=== PATIENT | female | born 1985 | race Two or more races ===

== ENCOUNTER 2016-11-05 21:33 | Emergency (ER) | payer BC, OTHER ==
[2016-11-05] MEDS ORDERED: MORPHINE SULFATE 4 MG/ML SYRINGE IV STA (22:00)
[2016-11-05] MEDS ORDERED: SODIUM CHLORIDE 0.9% 1,000 ML IV STA (22:00)
[2016-11-05] MEDS ORDERED: ONDANSETRON 4 MG/2 ML VIAL IVP STA (22:00)
[2016-11-05 22:17] LABS: Basophils % (A) 0 %; CHCM 33.1; Eosinophils # (A) 0.2 k/uL (0-0.7); Eosinophils % (A) 2 %; HCT 41.6 % (34.0-46.0); HDW 2.39; HGB 13.5 gm/dL (11.4-16.0); Luc # (Auto) 0.21; Luc % (Auto) 2; Lymphocytes # (A) 3.2 k/uL (1.0-4.8); Lymphocytes % (A) 26 %; MCH 27.6 pg (25.0-35.0); MCHC 32.5 g/dL (31.0-37.0); Mean Platelet Volume 8.8; Monocytes # (A) 0.5 k/uL (0-1.0); Monocytes % (A) 4 %; Neutrophils # (A) 8.5 k/uL (1.3-7.7); Neutrophils % (A) 67 %; RBC 4.89 m/uL (3.80-5.40); RDW 15.7 % (11.5-15.5); WBC 12.6 k/uL (3.8-10.6); WBC (Perox) 12.17
--- NOTE | 2016-11-05 22:19 | ED ---
Abdominal Pain HPI - General Chief Complaint: Abdominal Pain Stated Complaint: Abd Pain Time Seen by Provider: 11/05/16 21:48 Source: patient, RN notes reviewed Mode of arrival: ambulatory Limitations: no limitations - History of Present Illness Initial Comments: this a 31-year-old female presents emergency Department chief complaint abdominal pain, nausea vomiting. Patient states she's had symptoms over the last 2 days. Patient states it's in her mid abdomen and slightly in the epigastric region. Patient states that she had some heartburn took some Zantac with no relief her symptoms. She denies any diarrhea she states her stools been slightly higher than usual. Patient denies any dysuria or hematuria. Patient had a prior cholecystectomy. Patient denies any flank pain, fever, chills, chest pain, shortness of breath. - Related Data Home Medications Medication Instructions Recorded Confirmed Acetaminophen Tab [Tylenol Tab] 325 mg PO Q6H 05/07/15 05/10/15 Ibuprofen [Motrin] 200 - 400 mg PO Q6HR PRN 05/07/15 05/10/15 Multivit with Calcium,Iron,Min 1 each PO DAILY 05/07/15 05/10/15 [Women's Daily Multivitamin] Previous Rx's Medication Instructions Recorded HYDROcodone/APAP 7.5-325MG [[place] 1 each PO Q4H PRN #60 tab 05/14/15 7.5] Ondansetron Odt [Zofran Odt] 4 mg PO Q8HR PRN #10 tab 11/06/16 Allergies Allergy/AdvReac Type Severity Reaction Status Date / Time latex Allergy Rash/Hives Verified 05/10/15 12:50 Review of Systems ROS Statement: Those systems with pertinent positive or pertinent negative responses have been documented in the HPI. ROS Other: All systems not noted in ROS Statement are negative. Past Medical History Past Medical History: Asthma, GERD/Reflux Additional Past Medical History / Comment(s): Eczema on both arms, has an ovarian cyst, varicose veins. History of Any Multi-Drug Resistant Organisms: None Reported Past Surgical History: Section, Cholecystectomy Additional Past Surgical History / Comment(s): [place] teeth. Past Anesthesia/Blood Transfusion Reactions: No Reported Reaction Additional Past Anesthesia/Blood Transfusion Reaction / Comment(s): States is very anxious about having anesthesia. Past Psychological History: No Psychological Hx Reported Smoking Status: Current some day smoker Past Alcohol Use History: None Reported Past Drug Use History: None Reported - Past Family History Mother Family Medical History: Deep Vein Thrombosis (DVT) General Exam Limitations: no limitations General appearance: alert, in no apparent distress Head exam: Present: atraumatic, normocephalic, normal inspection Respiratory exam: Present: normal lung sounds bilaterally. Absent: respiratory distress, wheezes, rales, rhonchi, stridor Cardiovascular Exam: Present: regular rate, normal rhythm, normal heart sounds. Absent: systolic murmur, diastolic murmur, rubs, gallop, clicks GI/Abdominal exam: Present: soft, tenderness (mild to moderate tenderness to the mid abdomen), normal bowel sounds. Absent: distended, guarding, rebound, rigid Back exam: Absent: CVA tenderness (R), CVA tenderness (L) Skin exam: Present: warm, dry, intact, normal color. Absent: rash Course Vital Signs 11/05/16 11/05/16 21:41 23:19 Temperature 98.5 F Pulse Rate 71 65 Respiratory 20 16 Rate Blood Pressure 137/87 152/61 O2 Sat by Pulse 98 100 Oximetry Medical Decision Making - Medical Decision Making 31-year-old female presents emergency Department with chief complaint of abdominal pain, nausea. Patient has evidence of infiltrates or changes CT. Patient is improved at this time return parameters were discussed. - Lab Data Result diagrams: 11/05/16 21:02 11/05/16 21:02 Lab Results 11/05/16 11/05/16 11/05/16 Range/Units 21:02 21:02 21:02 WBC 12.6 H (3.8-10.6) k/uL RBC 4.89 (3.80-5.40) m/uL Hgb 13.5 (11.4-16.0) gm/dL Hct 41.6 (34.0-46.0) % MCV 85.0 (80.0-100.0) fL MCH 27.6 (25.0-35.0) pg MCHC 32.5 (31.0-37.0) g/dL RDW 15.7 H (11.5-15.5) % Plt Count 247 (150-450) k/uL Neutrophils % 67 % Lymphocytes % 26 % Monocytes % 4 % Eosinophils % 2 % Basophils % 0 % Neutrophils # 8.5 H (1.3-7.7) k/uL Lymphocytes # 3.2 (1.0-4.8) k/uL Monocytes # 0.5 (0-1.0) k/uL Eosinophils # 0.2 (0-0.7) k/uL Basophils # 0.0 (0-0.2) k/uL Sodium 140 (137-145) mmol/L Potassium 3.7 (3.5-5.1) mmol/L Chloride 106 (98-107) mmol/L Carbon Dioxide 25 (22-30) mmol/L Anion Gap 9 mmol/L BUN 11 (7-17) mg/dL Creatinine 0.73 (0.52-1.04) mg/dL Est GFR (MDRD) Af Amer >60 (>60 ml/min/1.73 sqM) Est GFR (MDRD) Non-Af >60 (>60 ml/min/1.73 sqM) Glucose 79 (74-99) mg/dL Calcium 9.3 (8.4-10.2) mg/dL Total Bilirubin 0.3 (0.2-1.3) mg/dL AST 25 (14-36) U/L ALT 53 H (9-52) U/L Alkaline Phosphatase 100 (38-126) U/L Total Protein 7.1 (6.3-8.2) g/dL Albumin 3.9 (3.5-5.0) g/dL Amylase 48 (30-110) U/L Lipase 32 (23-300) U/L Urine Color Urine Appearance (Clear) Urine pH (5.0-8.0) Ur Specific [place] (1.001-1.035) Urine Protein (Negative) Urine Glucose (UA) (Negative) Urine Ketones (Negative) Urine Blood (Negative) Urine Nitrite (Negative) Urine Bilirubin (Negative) Urine Urobilinogen (<2.0) mg/dL Ur Leukocyte Esterase (Negative) Urine RBC (0-5) /hpf Urine WBC (0-5) /hpf Ur Squamous Epith Cells (0-4) /hpf Urine Bacteria (None) /hpf Urine Mucus (None) /hpf Urine HCG, Qual Not Detected (Not Detectd) 11/05/16 Range/Units 21:02 WBC (3.8-10.6) k/uL RBC (3.80-5.40) m/uL Hgb (11.4-16.0) gm/dL Hct (34.0-46.0) % MCV (80.0-100.0) fL MCH (25.0-35.0) pg MCHC (31.0-37.0) g/dL RDW (11.5-15.5) % Plt Count (150-450) k/uL Neutrophils % % Lymphocytes % % Monocytes % % Eosinophils % % Basophils % % Neutrophils # (1.3-7.7) k/uL Lymphocytes # (1.0-4.8) k/uL Monocytes # (0-1.0) k/uL Eosinophils # (0-0.7) k/uL Basophils # (0-0.2) k/uL Sodium (137-145) mmol/L Potassium (3.5-5.1) mmol/L Chloride (98-107) mmol/L Carbon Dioxide (22-30) mmol/L Anion Gap mmol/L BUN (7-17) mg/dL Creatinine (0.52-1.04) mg/dL Est GFR (MDRD) Af Amer (>60 ml/min/1.73 sqM) Est GFR (MDRD) Non-Af (>60 ml/min/1.73 sqM) Glucose (74-99) mg/dL Calcium (8.4-10.2) mg/dL Total Bilirubin (0.2-1.3) mg/dL AST (14-36) U/L ALT (9-52) U/L Alkaline Phosphatase (38-126) U/L Total Protein (6.3-8.2) g/dL Albumin (3.5-5.0) g/dL Amylase (30-110) U/L Lipase (23-300) U/L Urine Color Yellow Urine Appearance Cloudy H (Clear) Urine pH 6.0 (5.0-8.0) Ur Specific [place] 1.023 (1.001-1.035) Urine Protein Trace H (Negative) Urine Glucose (UA) Negative (Negative) Urine Ketones Negative (Negative) Urine Blood Negative (Negative) Urine Nitrite Negative (Negative) Urine Bilirubin Negative (Negative) Urine Urobilinogen <2.0 (<2.0) mg/dL Ur Leukocyte Esterase Trace H (Negative) Urine RBC 2 (0-5) /hpf Urine WBC 4 (0-5) /hpf Ur Squamous Epith Cells 22 H (0-4) /hpf Urine Bacteria Rare H (None) /hpf Urine Mucus Few H (None) /hpf Urine HCG, Qual (Not Detectd) Disposition Clinical Impression: Enteritis Disposition: HOME SELF-CARE Condition: Stable Instructions: Enteritis (ED) Additional Instructions: Please return to the Emergency Department if symptoms worsen or any other concerns. Prescriptions: Ondansetron Odt [Zofran Odt] 4 mg PO Q8HR PRN #10 tab PRN Reason: Nausea Referrals: Lourdes Duran MD [Primary Care Provider] - 1-2 days
[2016-11-05 22:24] LABS: Appearance,Urine Cloudy (Clear); Bacteria,Urine Rare /hpf; Bilirubin,Urine Negative (Negative); Glucose,Urine (UA) Negative (Negative); Ketones,Urine Negative (Negative); Leukocyte Esterase,Urine Trace (Negative); Mucus,Urine Few /hpf; Nitrite,Urine Negative (Negative); Particle Count 14320; Protein,Urine Trace (Negative); RBC,Urine 2 /hpf (0-5); Specific Gravity,Urine 1.023 (1.001-1.035); Squamous Epithelial Cell,Urine 22 /hpf (0-4); UA Billing (MACRO vs. MICRO) MICRO; Urobilinogen,Urine <2.0 mg/dL (<2.0); WBC,Urine 4 /hpf (0-5)
[2016-11-05 22:28] LABS: ALT 53 U/L (9-52); AST 25 U/L (14-36); Alkaline Phosphatase 100 U/L (38-126); Amylase 48 U/L (30-110); Anion Gap 9 mmol/L; Blood Urea Nitrogen 11 mg/dL (7-17); Calcium 9.3 mg/dL (8.4-10.2); Carbon Dioxide 25 mmol/L (22-30); Chloride 106 mmol/L (98-107); Glucose 79 mg/dL (74-99); Non-African American GFR(MDRD) >60 (>60 ml/min/1.73 sqM); Potassium 3.7 mmol/L (3.5-5.1); Sodium 140 mmol/L (137-145); Total Bilirubin 0.3 mg/dL (0.2-1.3); Total Protein 7.1 g/dL (6.3-8.2)
--- NOTE | 2016-11-05 22:43 | XR ---
EXAM: XR Abdomen, 1 View CLINICAL HISTORY: Reason: abdominal pain TECHNIQUE: Frontal supine view of the abdomen/pelvis. COMPARISON: No relevant prior studies available. FINDINGS: Gastrointestinal tract: Unremarkable. No dilation. Bones/joints: Unremarkable. IMPRESSION: Normal abdominal x-ray.
[2016-11-05] MEDS ORDERED: RX INFO: IV CONTRAST WAS GIVEN 1 EACH MISC MISCELLANE PRN (22:51)
--- NOTE | 2016-11-06 00:10 | CT ---
EXAM: CT Abdomen and Pelvis With Intravenous Contrast CLINICAL HISTORY: Reason: Pain TECHNIQUE: Axial computed tomography images of the abdomen and pelvis with intravenous contrast. CTDI is 47.90 mGy and DLP is 1789.50 mGy-cm. This CT exam was performed using one or more of the following dose reduction techniques: automated exposure control, adjustment of the mA and/or kV according to patient size, and/or use of iterative reconstruction technique. COMPARISON: Abdominal ultrasound dated 04/03/2015 FINDINGS: Lower thorax: No acute findings. ABDOMEN: Liver: Hepatic steatosis is seen. Gallbladder and bile ducts: The gallbladder is not definitively visualized. The CBD measures up to 0.8 cm in diameter, which would be normal in a patient status post cholecystectomy. No ductal dilation. Pancreas: Unremarkable. No mass. No ductal dilation. Spleen: Unremarkable. No splenomegaly. Adrenals: Unremarkable. No mass. Kidneys and ureters: Unremarkable. No solid mass. No hydronephrosis. Stomach and bowel: Evaluation of the bowel is limited without the use of oral contrast material. Within this limitation, questionable wall thickening of the distal small bowel is seen (series 3, image 82), which may represent enteritis secondary to an infectious versus an inflammatory etiology. Mild colonic diverticulosis is noted without evidence of acute diverticulitis. No obstruction. Appendix: A normal appendix is seen. PELVIS: Bladder: Unremarkable. No mass. Reproductive: Unremarkable as visualized. ABDOMEN and PELVIS: Intraperitoneal space: Unremarkable. No free air. Trace pelvic free fluid, likely physiologic. Bones/joints: No acute fracture. No dislocation. Soft tissues: Small fat-containing left inguinal hernia is seen. Vasculature: Unremarkable. No abdominal aortic aneurysm. Lymph nodes: [place] mesenteric lymph nodes are noted, which is nonspecific, although may be reactive. IMPRESSION: 1. The gallbladder is not definitively visualized. The CBD measures up to 0.8 cm in diameter, which would be normal in a patient status post cholecystectomy. Correlate with patient's past surgical history. Right upper quadrant ultrasound may be performed for further evaluation, if clinically indicated. 2. Questionable wall thickening of the distal small bowel is seen, which may represent enteritis secondary to an infectious versus an inflammatory etiology. 3. Mild colonic diverticulosis without evidence of acute diverticulitis
[2016-11-06 00:30] VITALS: BP 118/61; PULSE 61; RESP 18; TEMP 98
== END 2016-11-06 00:30 | disposition home or self-care (01) ==
LOC: EC 21:33
DX: K52.9 Noninfective gastroenteritis and colitis, unspecified (principal); F17.200 Nicotine dependence, unspecified, uncomplicated; Z79.899 Other long term (current) drug therapy; Z91.040 Latex allergy status; Z90.49 Acquired absence of other specified parts of digestive tract
CPT/HCPCS: 36415; 80053; 82150; 83690; 85025; 81001; 81025; 74000; 74177; 99284; 96374; 96375; 96361 ×2; J2270; J2405; Q9967

== ENCOUNTER 2017-09-12 14:49 | Emergency (ER) | payer OTHER ==
[2017-09-12 15:08] VITALS: RESP 18
[2017-09-12] MEDS ORDERED: SODIUM CHLORIDE 0.9% 1,000 ML IV STA (15:19)
[2017-09-12] MEDS ORDERED: ONDANSETRON 4 MG/2 ML VIAL IVP STA (15:19)
[2017-09-12] MEDS ORDERED: KETOROLAC 30 MG/ML 1 ML VIAL IVP STA (15:19)
--- NOTE | 2017-09-12 15:40 | ED ---
Abdominal Pain HPI - General Chief Complaint: Abdominal Pain Stated Complaint: Abd Pain/Back Pain Time Seen by Provider: 09/12/17 15:10 Source: patient, RN notes reviewed, old records reviewed Mode of arrival: ambulatory Limitations: no limitations - History of Present Illness Initial Comments: This patient is a 32 year old female with CC of RLQ abdominal pain for 2 weeks and nausea. She reports she has had mild diarrhea, intermittent chills. No recorded fever. She was seen by PCP last week and encouraged to come to ED for further testing at that time, she was unable to come to ED that day, and waited to come today. She reports that she has been taking motrin and tylenol for the pain. Denies any other symptoms. PAtient reports that the pain radiates from RLQ to back. - Related Data Home Medications Medication Instructions Recorded Confirmed Acetaminophen [Tylenol Extra 1,500 mg PO DAILY PRN 09/12/17 09/12/17 Strength] Albuterol Inhaler [Ventolin Hfa 2 puff INHALATION RT-Q6H PRN 09/12/17 09/12/17 Inhaler] Multivitamins, Thera [Multivitamin 1 tab PO DAILY 09/12/17 09/12/17 (formulary)] Naproxen Sodium [Aleve] 440 mg PO BID 09/12/17 09/12/17 Allergies Allergy/AdvReac Type Severity Reaction Status Date / Time latex Allergy Rash/Hives Verified 09/12/17 17:26 Review of Systems ROS Statement: Those systems with pertinent positive or pertinent negative responses have been documented in the HPI. ROS Other: All systems not noted in ROS Statement are negative. Past Medical History Past Medical History: Asthma, GERD/Reflux Additional Past Medical History / Comment(s): Eczema on both arms, has an ovarian cyst, varicose veins. History of Any Multi-Drug Resistant Organisms: None Reported Past Surgical History: Section, Cholecystectomy Additional Past Surgical History / Comment(s): [place] teeth. Past Anesthesia/Blood Transfusion Reactions: No Reported Reaction Additional Past Anesthesia/Blood Transfusion Reaction / Comment(s): States is very anxious about having anesthesia. Past Psychological History: No Psychological Hx Reported Smoking Status: Current some day smoker Past Alcohol Use History: None Reported Past Drug Use History: Marijuana - Past Family History Mother Family Medical History: Deep Vein Thrombosis (DVT) General Exam - General Exam Comments Initial Comments: This patient is a well appearing 32 year old female, no distress. Limitations: no limitations General appearance: alert, in no apparent distress Head exam: Present: atraumatic, normocephalic, normal inspection Eye exam: Present: normal appearance, PERRL, EOMI. Absent: scleral icterus, conjunctival injection, periorbital swelling ENT exam: Present: normal exam, mucous membranes moist Neck exam: Present: normal inspection. Absent: tenderness, meningismus, lymphadenopathy Respiratory exam: Present: normal lung sounds bilaterally. Absent: respiratory distress, wheezes, rales, rhonchi, stridor Cardiovascular Exam: Present: regular rate, normal rhythm, normal heart sounds. Absent: systolic murmur, diastolic murmur, rubs, gallop, clicks GI/Abdominal exam: Present: soft, tenderness (RLQ tenderness. ), normal bowel sounds. Absent: distended, guarding, rebound, rigid Extremities exam: Present: normal inspection, full ROM, normal capillary refill. Absent: tenderness, pedal edema, joint swelling, calf tenderness Back exam: Present: normal inspection Neurological exam: Present: alert, oriented X3, CN II-XII intact Psychiatric exam: Present: normal affect, normal mood Skin exam: Present: warm, dry, intact, normal color. Absent: rash Course Vital Signs 09/12/17 09/12/17 15:06 18:23 Temperature 98.2 F 97.6 F Pulse Rate 69 60 Respiratory 18 18 Rate Blood Pressure 120/89 127/69 O2 Sat by Pulse 98 100 Oximetry Medical Decision Making - Medical Decision Making 32 year old female with 2 weeks of RLQ pain radiating towards back. Labs were reviewed and negative for any acute process. Patient was tendern in RLQ, CT scan preformed and shows normal appendix and left ovarian cyst. Vital signs stable, and with normal labs, and length of time for patient pain I do not believe she has any life threatnenting infectious process related to pain. Discussed patient is to follow up with PCP and attempt clear liquid diet for one to 2 days if this may help, return parameters discussed. - Lab Data Result diagrams: 09/12/17 15:55 09/12/17 15:55 Lab Results 09/12/17 09/12/17 09/12/17 Range/Units 15:24 15:24 15:55 WBC (3.8-10.6) k/uL RBC (3.80-5.40) m/uL Hgb (11.4-16.0) gm/dL Hct (34.0-46.0) % MCV (80.0-100.0) fL MCH (25.0-35.0) pg MCHC (31.0-37.0) g/dL RDW (11.5-15.5) % Plt Count (150-450) k/uL Neutrophils % % Lymphocytes % % Monocytes % % Eosinophils % % Basophils % % Neutrophils # (1.3-7.7) k/uL Lymphocytes # (1.0-4.8) k/uL Monocytes # (0-1.0) k/uL Eosinophils # (0-0.7) k/uL Basophils # (0-0.2) k/uL Sodium 139 (137-145) mmol/L Potassium 4.0 (3.5-5.1) mmol/L Chloride 106 (98-107) mmol/L Carbon Dioxide 27 (22-30) mmol/L Anion Gap 6 mmol/L BUN 7 (7-17) mg/dL Creatinine 0.50 L (0.52-1.04) mg/dL Est GFR (CKD-EPI)AfAm >90 (>60 ml/min/1.73 sqM) Est GFR (CKD-EPI)NonAf >90 (>60 ml/min/1.73 sqM) Glucose 76 (74-99) mg/dL Calcium 8.6 (8.4-10.2) mg/dL Total Bilirubin 0.3 (0.2-1.3) mg/dL AST 16 (14-36) U/L ALT 24 (9-52) U/L Alkaline Phosphatase 77 (38-126) U/L Total Protein 6.2 L (6.3-8.2) g/dL Albumin 3.6 (3.5-5.0) g/dL Amylase 64 (30-110) U/L Lipase 74 (23-300) U/L Urine Color Yellow Urine Appearance Cloudy H (Clear) Urine pH 7.0 (5.0-8.0) Ur Specific [place] 1.011 (1.001-1.035) Urine Protein Negative (Negative) Urine Glucose (UA) Negative (Negative) Urine Ketones Negative (Negative) Urine Blood Negative (Negative) Urine Nitrite Negative (Negative) Urine Bilirubin Negative (Negative) Urine Urobilinogen 2.0 (<2.0) mg/dL Ur Leukocyte Esterase Negative (Negative) Urine RBC 1 (0-5) /hpf Urine WBC 1 (0-5) /hpf Ur Squamous Epith Cells 3 (0-4) /hpf Amorphous Sediment Occasional H (None) /hpf Urine Bacteria Rare H (None) /hpf Urine Mucus Occasional H (None) /hpf Urine HCG, Qual Not Detected (Not Detectd) 09/12/17 Range/Units 15:55 WBC 8.6 (3.8-10.6) k/uL RBC 4.60 (3.80-5.40) m/uL Hgb 12.7 (11.4-16.0) gm/dL Hct 38.5 (34.0-46.0) % MCV 83.7 (80.0-100.0) fL MCH 27.6 (25.0-35.0) pg MCHC 33.0 (31.0-37.0) g/dL RDW 15.7 H (11.5-15.5) % Plt Count 225 (150-450) k/uL Neutrophils % 57 % Lymphocytes % 34 % Monocytes % 5 % Eosinophils % 1 % Basophils % 0 % Neutrophils # 4.9 (1.3-7.7) k/uL Lymphocytes # 3.0 (1.0-4.8) k/uL Monocytes # 0.5 (0-1.0) k/uL Eosinophils # 0.1 (0-0.7) k/uL Basophils # 0.0 (0-0.2) k/uL Sodium (137-145) mmol/L Potassium (3.5-5.1) mmol/L Chloride (98-107) mmol/L Carbon Dioxide (22-30) mmol/L Anion Gap mmol/L BUN (7-17) mg/dL Creatinine (0.52-1.04) mg/dL Est GFR (CKD-EPI)AfAm (>60 ml/min/1.73 sqM) Est GFR (CKD-EPI)NonAf (>60 ml/min/1.73 sqM) Glucose (74-99) mg/dL Calcium (8.4-10.2) mg/dL Total Bilirubin (0.2-1.3) mg/dL AST (14-36) U/L ALT (9-52) U/L Alkaline Phosphatase (38-126) U/L Total Protein (6.3-8.2) g/dL Albumin (3.5-5.0) g/dL Amylase (30-110) U/L Lipase (23-300) U/L Urine Color Urine Appearance (Clear) Urine pH (5.0-8.0) Ur Specific [place] (1.001-1.035) Urine Protein (Negative) Urine Glucose (UA) (Negative) Urine Ketones (Negative) Urine Blood (Negative) Urine Nitrite (Negative) Urine Bilirubin (Negative) Urine Urobilinogen (<2.0) mg/dL Ur Leukocyte Esterase (Negative) Urine RBC (0-5) /hpf Urine WBC (0-5) /hpf Ur Squamous Epith Cells (0-4) /hpf Amorphous Sediment (None) /hpf Urine Bacteria (None) /hpf Urine Mucus (None) /hpf Urine HCG, Qual (Not Detectd) - Radiology Data Radiology results: report reviewed CT abdomen and pelvis with contrast shows left ovarian cyst, normal appendix, no suscpicious changes. Disposition Clinical Impression: Abdominal pain Disposition: HOME SELF-CARE Condition: Good Instructions: Abdominal Pain (ED) Additional Instructions: Motrin and Tylenol for pain. Follow-up with primary care provider. Return to the emergency department if any alarming signs or symptoms occur. Is patient prescribed a controlled substance at d/c from ED?: No When asked, does pt state using other controlled substances?: No If prescribed controlled substance>3 days was MAPS reviewed?: No If opioid is for acute pain is fill amount 7 days or less?: No If Rx opioid, was Start Talking consent form obtained?: No Referrals: Lourdes Duran MD [Primary Care Provider] - 1-2 days Time of Disposition: 17:35
[2017-09-12 16:13] LABS: Amorphous Sediment,Urine Occasional /hpf; Appearance,Urine Cloudy (Clear); Bacteria,Urine Rare /hpf; Bilirubin,Urine Negative (Negative); Blood,Urine Negative (Negative); Color,Urine Yellow; Glucose,Urine (UA) Negative (Negative); Ketones,Urine Negative (Negative); Leukocyte Esterase,Urine Negative (Negative); Mucus,Urine Occasional /hpf; Nitrite,Urine Negative (Negative); Protein,Urine Negative (Negative); RBC,Urine 1 /hpf (0-5); Specific Gravity,Urine 1.011 (1.001-1.035); Squamous Epithelial Cell,Urine 3 /hpf (0-4); WBC,Urine 1 /hpf (0-5)
[2017-09-12 16:13] LABS: Basophils % (A) 0 %; Eosinophils # (A) 0.1 k/uL (0-0.7); Eosinophils % (A) 1 %; HCT 38.5 % (34.0-46.0); HGB 12.7 gm/dL (11.4-16.0); Lymphocytes % (A) 34 %; MCH 27.6 pg (25.0-35.0); MCV 83.7 fL (80.0-100.0); Mean Platelet Volume 7.5; Monocytes # (A) 0.5 k/uL (0-1.0); Monocytes % (A) 5 %; Neutrophils # (A) 4.9 k/uL (1.3-7.7); Neutrophils % (A) 57 %; Platelet Count 225 k/uL (150-450); RDW 15.7 % (11.5-15.5); WBC 8.6 k/uL (3.8-10.6)
[2017-09-12 16:30] LABS: ALT 24 U/L (9-52); AST 16 U/L (14-36); Albumin 3.6 g/dL (3.5-5.0); Alkaline Phosphatase 77 U/L (38-126); Amylase 64 U/L (30-110); Anion Gap 6 mmol/L; Blood Urea Nitrogen 7 mg/dL (7-17); Calcium 8.6 mg/dL (8.4-10.2); Carbon Dioxide 27 mmol/L (22-30); Chloride 106 mmol/L (98-107); Glucose 76 mg/dL (74-99); Lipase 74 U/L (23-300); Sodium 139 mmol/L (137-145); Total Bilirubin 0.3 mg/dL (0.2-1.3); Total Protein 6.2 g/dL (6.3-8.2)
--- NOTE | 2017-09-12 17:15 | CT ---
EXAMINATION TYPE: CT abdomen pelvis w con DATE OF EXAM: 09/12/2017 COMPARISON: 11/05/2016 INDICATION: Patient complains of RLQ pain, nausea, vomiting, and diarrhea. DLP: 1756 mGycm, Automated exposure control for dose reduction was used. CONTRAST: 100 mL of Isovue 300. Study performed without Oral Contrast TECHNIQUE: Axial images were obtained from above the diaphragm to the pubic rami in the axial plane a t 5 mm thick sections. Reconstructed images are reviewed on the computer in the coronal plane. FINDINGS: Limited CT sections are obtained the lung bases. The lung bases are clear. CT ABDOMEN: Liver: Normal Spleen: Normal Pancreas: Normal Adrenal glands: The adrenal glands are normal. Gallbladder: Not identified Kidneys: No masses are evident. No hydronephrosis is present. No cysts are present. Delayed images were obtained through the kidneys, which remain unremarkable. Aorta: Normal Inferior vena cava: Normal. CT PELVIS: Loops of bowel within the abdomen and pelvis are normal. Studies without oral contrast limiting t he evaluation. Appendix: Normal as visualized. Urinary bladder: Normal. Genitourinary structures: Uterus appears within normal limits. Multiple cysts are within the left ova ry. The largest measures 1.5 cm. Osseous structures: No suspicious lytic or sclerotic lesions. IMPRESSIONS: 1. Multiple left ovarian cysts, the largest measuring 1.5 cm. 2. No suspicious acute changes. 3. Normal appendix
[2017-09-12 18:24] VITALS: BP 127/69; PULSE 60; TEMP 97.6
== END 2017-09-12 18:24 | disposition home or self-care (01) ==
LOC: EC 14:49
DX: N83.202 Unspecified ovarian cyst, left side (principal); R11.0 Nausea; R19.7 Diarrhea, unspecified; J45.909 Unspecified asthma, uncomplicated; K21.9 Gastro-esophageal reflux disease without esophagitis; F17.200 Nicotine dependence, unspecified, uncomplicated; Z79.1 Long term (current) use of non-steroidal anti-inflammatories (NSAID); Z79.899 Other long term (current) drug therapy; Z91.040 Latex allergy status; Z90.49 Acquired absence of other specified parts of digestive tract
CPT/HCPCS: 36415; 80053; 82150; 83690; 85025; 81001; 81025; 87086; 74177; 99284; 96374; 96375; 96361 ×2; J2405; J1885; Q9967

== ENCOUNTER 2018-11-08 13:12 | Observation (INO) | payer OTHER ==
[2018-11-08] MEDS ORDERED: MORPHINE SULFATE 4 MG/ML SYRINGE IV STA (14:09)
--- NOTE | 2018-11-08 14:19 | ED ---
General Adult HPI - General Chief complaint: Back Pain/Injury Stated complaint: Back pain Time Seen by Provider: 11/08/18 13:15 Source: patient, EMS Mode of arrival: EMS Limitations: no limitations - History of Present Illness Initial comments: Dictation was produced using [employer] dictation software. please excuse any grammatical, word or spelling errors. Chief Complaint: 33-year-old female past medical history of pilonidal cyst presents with sacral pain and back pain. History of Present Illness: Is a 33-year-old female she has past medical history of pilonidal cysts. 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 She reports that she had surgery to remove the cyst several months ago. She intermittently gets pain. Since yesterday she has had significant tenderness to the surgical site. Denies any fever or constitutional symptoms. Patient called EMS and was brought to the emergency department for evaluation. Patient has any constitutional symptoms. Patient is homosexual and denies . The ROS documented in this emergency department record has been reviewed and confirmed by me. Those systems with pertinent positive or negative responses have been documented in the HPI. All other systems are other negative and/or noncontributory. PHYSICAL EXAM: General Impression: Alert and oriented x3, not in acute distress HEENT: Normocephalic atraumatic, extra-ocular movements intact, pupils equal and reactive to light bilaterally, mucous membranes moist. Cardiovascular: Heart regular rate and rhythm, S1&S2 audible, no murmurs, rubs or gallops Chest: Lungs clear to auscultation bilaterally, no rhonchi, no wheeze, no rales Abdomen: Bowel sounds present, abdomen soft, non-tender, non-distended, no organomegaly Musculoskeletal: Pulses present and equal in all extremities, no peripheral edema Motor: no focal deficits noted Neurological: CN II-XII grossly intact, no focal motor or sensory deficits noted Skin: Well-healed scar over the sacrum without any erythema there is minimal induration. Psych: Normal affect and mood ED course: 33-year-old female presents with sacral pain and back pain. She has a history of pilonidal cyst status post cyst removal. Vital signs upon arrival are within acceptable limits. She did received fentanyl from EMS while en route to the emergency department. Clinical presentation consistent with nontraumatic back pain. Patient does not have any red flag symptoms. Patient given IV analgesia and fluids with minimal improvement of symptoms. She is able to ambulate however with significant antalgia. Laboratory evaluation obtained. CBC and metabolic panel is unremarkable. Given patient's degree of symptoms we'll admit patient observation with spine surgery consultation. Discussed patient case with Dr. Blankenship who is willing to accept patients care. - Related Data Home Medications Medication Instructions Recorded Confirmed No Known Home Medications 11/08/18 11/08/18 Allergies Allergy/AdvReac Type Severity Reaction Status Date / Time latex Allergy Rash/Hives Verified 11/08/18 13:41 Review of Systems ROS Statement: Those systems with pertinent positive or pertinent negative responses have been documented in the HPI. ROS Other: All systems not noted in ROS Statement are negative. Past Medical History Past Medical History: Asthma, GERD/Reflux Additional Past Medical History / Comment(s): Eczema on both arms, has an ovarian cyst, varicose veins. History of Any Multi-Drug Resistant Organisms: None Reported Past Surgical History: Section, Cholecystectomy Additional Past Surgical History / Comment(s): [place] teeth. cyst removal Past Anesthesia/Blood Transfusion Reactions: No Reported Reaction Additional Past Anesthesia/Blood Transfusion Reaction / Comment(s): States is very anxious about having anesthesia. Past Psychological History: No Psychological Hx Reported Smoking Status: Current some day smoker Past Alcohol Use History: None Reported Past Drug Use History: Marijuana - Past Family History Mother Family Medical History: Deep Vein Thrombosis (DVT) General Exam Limitations: no limitations Course Vital Signs 11/08/18 13:16 Temperature 98.5 F Pulse Rate 85 Respiratory 16 Rate Blood Pressure 124/74 O2 Sat by Pulse 100 Oximetry Medical Decision Making - Lab Data Result diagrams: 11/08/18 14:35 11/08/18 14:35 Lab Results 11/08/18 11/08/18 Range/Units 14:35 14:35 WBC 10.1 (3.8-10.6) k/uL RBC 4.83 (3.80-5.40) m/uL Hgb 12.7 (11.4-16.0) gm/dL Hct 38.8 (34.0-46.0) % MCV 80.4 (80.0-100.0) fL MCH 26.3 (25.0-35.0) pg MCHC 32.7 (31.0-37.0) g/dL RDW 16.7 H (11.5-15.5) % Plt Count 220 (150-450) k/uL Neutrophils % 66 % Lymphocytes % 26 % Monocytes % 5 % Eosinophils % 2 % Basophils % 0 % Neutrophils # 6.7 (1.3-7.7) k/uL Lymphocytes # 2.6 (1.0-4.8) k/uL Monocytes # 0.5 (0-1.0) k/uL Eosinophils # 0.2 (0-0.7) k/uL Basophils # 0.0 (0-0.2) k/uL Anisocytosis Slight Sodium 140 (137-145) mmol/L Potassium 4.7 (3.5-5.1) mmol/L Chloride 107 (98-107) mmol/L Carbon Dioxide 26 (22-30) mmol/L Anion Gap 7 mmol/L BUN 12 (7-17) mg/dL Creatinine 0.54 (0.52-1.04) mg/dL Est GFR (CKD-EPI)AfAm >90 (>60 ml/min/1.73 sqM) Est GFR (CKD-EPI)NonAf >90 (>60 ml/min/1.73 sqM) Glucose 90 (74-99) mg/dL Calcium 8.9 (8.4-10.2) mg/dL Disposition Clinical Impression: Back pain Disposition: ADMITTED IP TO THIS [facility] Condition: Fair Referrals: Lourdes Duran MD [Primary Care Provider] - 1-2 days Decision Time: 16:06
[2018-11-08 15:12] LABS: Anisocytosis Slight; Basophils % (A) 0 %; Eosinophils # (A) 0.2 k/uL (0-0.7); Eosinophils % (A) 2 %; HCT 38.8 % (34.0-46.0); HGB 12.7 gm/dL (11.4-16.0); Lymphocytes # (A) 2.6 k/uL (1.0-4.8); Lymphocytes % (A) 26 %; MCH 26.3 pg (25.0-35.0); MCHC 32.7 g/dL (31.0-37.0); MCV 80.4 fL (80.0-100.0); Mean Platelet Volume 9.1; Monocytes # (A) 0.5 k/uL (0-1.0); Monocytes % (A) 5 %; Neutrophils # (A) 6.7 k/uL (1.3-7.7); Neutrophils % (A) 66 %; Platelet Count 220 k/uL (150-450); RBC 4.83 m/uL (3.80-5.40); RDW 16.7 % (11.5-15.5); WBC 10.1 k/uL (3.8-10.6)
[2018-11-08 15:37] LABS: African American GFR (CKD) >90 (>60 ml/min/1.73 sqM); Anion Gap 7 mmol/L; Blood Urea Nitrogen 12 mg/dL (7-17); Calcium 8.9 mg/dL (8.4-10.2); Carbon Dioxide 26 mmol/L (22-30); Chloride 107 mmol/L (98-107); Glucose 90 mg/dL (74-99); Non-African American GFR(CKD) >90 (>60 ml/min/1.73 sqM); Sodium 140 mmol/L (137-145)
[2018-11-08 15:41] LABS: Potassium 4.7 mmol/L (3.5-5.1)
[2018-11-08] MEDS ORDERED: ONDANSETRON 4 MG/2 ML VIAL IVP PRN (16:07)
[2018-11-08] MEDS ORDERED: NALOXONE 0.4 MG/ML 1 ML VIAL IV PRN (16:07)
[2018-11-08 16:14] LABS: Appearance,Urine Clear (Clear); Bilirubin,Urine Negative (Negative); Blood,Urine Negative (Negative); Color,Urine Yellow; Glucose,Urine (UA) Negative (Negative); Ketones,Urine Negative (Negative); Leukocyte Esterase,Urine Negative (Negative); Nitrite,Urine Negative (Negative); PH, Urine 6.5 (5.0-8.0); Protein,Urine Negative (Negative); Specific Gravity,Urine 1.022 (1.001-1.035)
[2018-11-08] MEDS: SODIUM CHLORIDE 0.9% 1,000 ML IV SCH (16:37)
[2018-11-08] MEDS ORDERED: CYCLOBENZAPRINE 10 MG TAB PO STA (17:43)
[2018-11-08] MEDS: HYDROcodone/APAP 5-325MG 1 EACH TAB PO PRN (17:53)
[2018-11-08] MEDS: MORPHINE SULFATE 4 MG/ML SYRINGE IV PRN (20:54)
--- NOTE | 2018-11-09 01:31 | P.HPIM ---
History of Present Illness H&P Date: 11/08/18 Chief Complaint: Intractable back pain Patient is a 33-year-old female with known history of asthma, GERD and currently able to smoke came to the hospital with complaints of intractable back pain and pain over iliac crest. Patient says that she usually does not have any back pain. Yesterday she got up from the couch and suddenly felt pain in the lower back. She tried to move her back to the sites with just herself but could not get any pain relief. Since then pain is constant and unable to continue her daily activities. Patient presents ER for further evaluation. Denied any weakness of the lower extremities. No bladder or bowel incontinence. No sharp pain radiating down the leg. No fever no chills. No chest pain or shortness of breath. Denied any recent i njury or fall. No previous history of back surgeries otherwise. Denied any history of CT and MRI of the spine previously. Patient says that she does have a history of periodic medical cyst over the sacral spine which was removed previously.. Review of Systems Constitutional: Patient denies any fever or chills . No generalized weakness or weight loss. Abdomen: Patient denied nausea vomiting and diarrhea and abdominal pain. Cardiovascular: Patient denies any chest pain or short of breath no palpitations. Respiratory: patient denied any cough is from production. No shortness of breath Neurologic: Patient denied any numbness or tingling headache. Musculoskeletal: Patient denies any complaints of joint swelling or deformity. Patient does have lower back pain Skin: Negative Psychiatric: Negative Endocrine: No heat or cold intolerance. No recent weight gain. Genitourinary: No dysuria or hematuria. All other 14 point ROS negative except the above Past Medical History Past Medical History: Asthma, GERD/Reflux Additional Past Medical History / Comment(s): Eczema on both arms, has an ovarian cyst, varicose veins. History of Any Multi-Drug Resistant Organisms: None Reported Past Surgical History: Section, Cholecystectomy Additional Past Surgical History / Comment(s): [place] teeth. cyst removal Past Anesthesia/Blood Transfusion Reactions: No Reported Reaction Additional Past Anesthesia/Blood Transfusion Reaction / Comment(s): States is very anxious about having anesthesia. Past Psychological History: No Psychological Hx Reported Smoking Status: Current some day smoker Past Alcohol Use History: None Reported Additional Past Alcohol Use History / Comment(s): Smokes 1-5 cigarettes per week. Started smoking as a teenager, but has quit many times and returned to smoking. Past Drug Use History: Marijuana - Past Family History Mother Family Medical History: Deep Vein Thrombosis (DVT) Additional Family Medical History / Comment(s): quadruple bipass Medications and Allergies Home Medications Medication Instructions Recorded Confirmed Type No Known Home Medications 11/08/18 11/08/18 History Allergies Allergy/AdvReac Type Severity Reaction Status Date / Time latex Allergy Rash/Hives Verified 11/08/18 13:41 Physical Exam Vitals: Vital Signs Temp Pulse Pulse Resp BP BP Pulse Ox 11/08/18 18:18 98.0 F 73 16 136/84 100 11/08/18 17:43 69 16 122/78 98 11/08/18 13:16 98.5 F 85 16 124/74 100 Intake and Output 11/08/18 11/08/18 11/08/18 06:59 14:59 22:59 Other: Weight 111.13 kg PHYSICAL EXAMINATION: Patient is lying in the bed comfortably, no acute distress, awake alert and oriented.. HEENT: Normocephalic. Neck is supple. Pupils reactive. Nostrils clear. Oral cavity is moist. Ears reveal no drainage. Neck reveals no JVD, carotid bruits, or thyromegaly. CHEST EXAMINATION: Trachea is central. Symmetrical expansion. Lung franco clear to auscultation and percussion. CARDIAC: Normal S1, S2 with no gallops. No murmurs ABDOMEN: Soft. Bowel sounds normal. No organomegaly. No abdominal bruits. Extremities: reveal no edema. No clubbing or cyanosis Neurologically awake, alert, oriented x3 with well-coordinated movements. No focal deficits noted Skin: No rash or skin lesions. Psychiatric: Coperative. Nonsuicidal Musculoskeletal: No joint swelling or deformity. Patient does have tenderness over the lumbar spine and right iliac crest. Results CBC & Chem 7: 11/08/18 14:35 11/08/18 14:35 Labs: Abnormal Lab Results - Last 24 Hours (Table) 11/08/18 Range/Units 14:35 RDW 16.7 H (11.5-15.5) % Thrombosis Risk Factor Assmnt - DVT/VTE Prophylaxis DVT/VTE Prophylaxis: Pharmacologic Prophylaxis ordered - Choose All That Apply Any of the Below Risk Factors Present?: No Assessment and Plan Assessment: Intractable lower back pain. Asthma stable GERD Nicotine addiction/ history of marijuana use DVT prophylaxis. Heparin subcu. Plan: Patient be continued on pain management with [place] and was given IV morphine in the ER. We will add muscle relaxants as needed. Continue with PPI. Continue with bedrest and orthopedic surgery will be consulted. Further recommendations based on the clinical course. Continue with DVT prophylaxis. Time with Patient: Greater than 30
[2018-11-09] MEDS: MORPHINE SULFATE 4 MG/ML SYRINGE IV PRN ×3 (04:34→12:40)
[2018-11-09 06:08] VITALS: RESP 16
[2018-11-09] MEDS: HYDROcodone/APAP 5-325MG 1 EACH TAB PO PRN ×2 (07:36→20:08)
[2018-11-09] MEDS: PANTOPRAZOLE 40 MG TABLET PO SCH (07:37)
[2018-11-09] MEDS: HEPARIN SODIUM,PORCINE 5,000 UNIT/ML 1 ML VIAL SQ SCH ×3 (07:37→23:32)
[2018-11-09] MEDS: methylPREDNISolone SOD SUCCI 125 MG/2 ML VIAL IV SCH ×3 (09:27→23:31)
--- NOTE | 2018-11-09 11:00 | XR ---
Lumbar spine HISTORY: Back pain 3 views of the lumbar spine Correlation to prior exam 10/28/2014 Lumbar vertebral bodies show preserved height, alignment, and bone mineralization. There is mild spon dylosis at the lower lumbar spine, loss of disc height L5-S1. IMPRESSION: Mild degenerative disc disease is suspected. Lumbar MRI may be of benefit.
[2018-11-09] MEDS: SODIUM CHLORIDE 0.9% 1,000 ML IV SCH (15:43)
--- NOTE | 2018-11-09 16:05 | P.CNOR ---
History of Present Illness - [facility] Consult date: 11/09/18 Requesting physician: Ezekiel Anderson Consult reason: low back pain (Intractable low back pain) History of present illness: Patient is a pleasant 33-year-old female who is seen and examined at bedside for intractable low back pain. She states she woke up early yesterday morning without any significant pain at that time approximately 4:40 AM. By approximately 11:00 morning she was experiencing severe pain in her lumbar spine. She denies any specific injuries. Her pain is exacerbated with any movements of the lumbar spine. She was brought to the emergency room for furt her evaluation. She is having significant difficulty ambulation due to her back pain. She was admitted for further evaluation. She denies any specific lower extremity weakness or radiculopathy bilaterally. Lifting her legs does exacerbate her low back pain. She does not recall having these symptoms previously. She does have a history of pilonidal cyst with previous surgical resection several months ago and has recovered without difficulty. He currently denies any nausea, vomiting, fever, or chills. She's been admitted to medicine for further treatment evaluation as well. Past Medical History Past Medical History: Asthma, GERD/Reflux Additional Past Medical History / Comment(s): Eczema on both arms, has an ovarian cyst, varicose veins. History of Any Multi-Drug Resistant Organisms: None Reported Past Surgical History: Section, Cholecystectomy Additional Past Surgical History / Comment(s): [place] teeth. cyst removal Past Anesthesia/Blood Transfusion Reactions: No Reported Reaction Additional Past Anesthesia/Blood Transfusion Reaction / Comm: States is very anxious about having anesthesia. Past Psychological History: No Psychological Hx Reported Smoking Status: Current some day smoker Past Alcohol Use History: None Reported Additional Past Alcohol Use History / Comment(s): Smokes 1-5 cigarettes per week. Started smoking as a teenager, but has quit many times and returned to smoking. Past Drug Use History: Marijuana - Past Family History Mother Family Medical History: Deep Vein Thrombosis (DVT) Additional Family Medical History / Comment(s): quadruple bipass Medications and Allergies Home Medications Medication Instructions Recorded Confirmed Type No Known Home Medications 11/08/18 11/08/18 History Allergies Allergy/AdvReac Type Severity Reaction Status Date / Time latex Allergy Rash/Hives Verified 11/08/18 13:41 Physical Examination Physical exam: Patient is awake, alert, and oriented 3 Vital signs stable Good chest excursion with deep inspiration and expiration Difficulty with moving in bed due to back pain Examination of lumbar spine reveals skin is intact with no abrasions, lacerations, or bruises; no erythema, purulence or signs of infection Evidence of a tattoo along the midline of the lower lumbar spine Evidence of a well-healed incision from previous pilonidal cyst resection which does not show evidence of erythema, bruising, or obvious sign of infection Significant pain with palpation along the sacroiliac joints bilaterally and along the lumbosacral junction Dorsiflexion, plantarflexion, and extensor hallucis longus positive sustained bilaterally Lower extremity strength 5/5 bilaterally Patellar reflex 2+ bilaterally and Achilles reflexes 2+ bilaterally No lower extremity hyperreflexia bilaterally Straight leg test exacerbates low back pain No signs or symptoms of DVT; no calf pain No pain with internal and external rotation of the hips bilaterally Neurovascularly intact Results Pertinent studies: X-rays lumbosacral spine taken on 11/09/2018: Overall alignment is adequately maintained; no evidence of vertebral body compression fracture deformity; L5-S1 mild degenerative disc disease and spondylosis; no evidence of instability - Labs Labs: H & H 11/08/18 Range/Units 14:35 Hgb 12.7 (11.4-16.0) gm/dL Hct 38.8 (34.0-46.0) % Result Diagrams: 11/08/18 14:35 11/08/18 14:35 Assessment and Plan Assessment: Assessment: Intractable low back pain Difficulty ambulation due to pain L5-S1 mild degenerative disc disease and spondylosis History of pilonidal cyst with surgical resection (1) Intractable low back pain Current Visit: Yes Status: Acute Code(s): M54.5 - LOW BACK PAIN SNOMED Code(s): 99175119420176371 (2) Decreased ambulation status Current Visit: Yes Status: Acute Code(s): Z74.09 - OTHER REDUCED MOBILITY SNOMED Code(s): 362292626 (3) Degenerative disc disease at L5-S1 level Current Visit: Yes Status: Acute Code(s): M51.36 - OTHER INTERVERTEBRAL DISC DEGENERATION, LUMBAR REGION SNOMED Code(s): 00330684 (4) Facet arthritis, degenerative, L5-S1 level, lumbosacral spine Current Visit: Yes Status: Acute Code(s): M47.817 - SPONDYLS W/O MYELOPATHY OR RADICULOPATHY, LUMBOSACR REGION SNOMED Code(s): 458328824 (5) History of excision of pilonidal cyst Current Visit: Yes Status: Acute Code(s): Z98.890 - OTHER SPECIFIED POSTPROCEDURAL STATES SNOMED Code(s): 197800466 Plan: Plan: 1. After physical examination the patient, further discussion with the patient, and reviewing imaging, we will currently plan to continue with conservative treatment at this time. She has been experiencing significant intractable low back pain with difficulty ambulation due to pain since yesterday without injury. She is not experiencing any lower extremity weakness or radiculopathy bilaterally. Reviewing the x-ray imaging does not show evidence of significant degenerative change but does show some degenerative changes at L5-S1. There is no evidence of compression fracture deformity or listhesis. She is currently receiving [place] 5 mg/325 mg, morphine, and and Flexeril as prescribed as needed for relief of her symptoms. We will continue to start on Solu-Medrol 80 mg IV every 8 hours to see if this can help improve her low back pain. We are not currently planning for acute surgical intervention in regards to lumbar spine. We will plan to exhaust conservative treatment. We are not currently planning for further imaging of her lumbar spine. If her symptoms are able to improve with medicine, we'll give the patient was discharged home. If she has some improvement with Solu-Medrol, may plan to discharge patient home with a steroid taper. 2. Patient will continue seeing examined by medicine Time with Patient: Greater than 30 (Including obtaining history, physical examination, reviewing of imaging, and dictation.)
[2018-11-09] MEDS ORDERED: DOCUSATE 100 MG CAP PO PRN (16:55)
[2018-11-10 05:40] VITALS: BP 105/59; PULSE 78; TEMP 98
[2018-11-10] MEDS: HEPARIN SODIUM,PORCINE 5,000 UNIT/ML 1 ML VIAL SQ SCH (09:18)
[2018-11-10] MEDS: PANTOPRAZOLE 40 MG TABLET PO SCH (09:18)
[2018-11-10] MEDS: methylPREDNISolone SOD SUCCI 125 MG/2 ML VIAL IV SCH (09:18)
--- NOTE | 2018-11-10 09:35 | P.PN ---
Progress Note - Text Progress Note Date: 11/10/18 Patient is seen and examined today at bedside. The patient feels her back pain is significantly improved today she feels that the steroids are doing quite well for her. She has been up and around her room. She has been able to shower and ambulate into her room and into the halls. Pain is being controlled with medication. Physical Exam Afebrile with stable vital signs Abdomen is soft nontender. Chest has good excursion deep and space expiration Extremities have not had neurologic change. She has good sustained dorsal flexion plantarflexion and EHL. She is able to ambulate around the room quite well and get in and out of bed without any significant discomfort Calves and thighs were soft nontender without evidence of DVT. Assessment/Plan Low back pain resolving. No significant radiculopathy The patient's imaging has good overall stability. She has not having any evide nce of infection. She has had excellent improvement in terms of her back pain with her steroid medications and I would recommend that she continue with an oral tapering dose for discharge. From an orthopedic spine standpoint is okay for her to be discharged home and she can follow-up on an as-needed basis.
--- NOTE | 2018-11-10 11:07 | P.PN ---
Subjective Progress Note Date: 11/09/18 Principal diagnosis: Intractable lower back pain Patient is a 33-year-old female with known history of asthma, GERD and currently able to smoke came to the hospital with complaints of intractable back pain and pain over iliac crest. Patient says that she usually does not have any back pain. Yesterday she got up from the couch and suddenly felt pain in the lower back. She tried to move her back to the sites with just herself but could not get any pain relief. Since then pain is constant and unable to continue her daily activities. Patient presents ER for further evaluation. Denied any weakness of the lower extremities. No bladder or bowel incontinence. No sharp pain radiating down the leg. No fever no chills. No chest pain or shortness of breath. Denied any recent injury or fall. No previous history of back surgeries otherwise. Denied any history of CT and MRI of the spine previously. Patient says that she does have a history of periodic medical cyst over the sacral spine which was removed previously.. 11/09/2017 Patient says that her back pain is better but still having some soreness with ambulation. Able to get out of the bed without support. Patient was seen by orthopedic surgery and recommends IV steroids. No compressive fever or chills. No weakness. No neurological symptoms otherwise. No chest pain or shortness of breath. X-ray of the lumbar spine showed mildly generally changes at the L5-S1 Current medications reviewed. Objective - Vital Signs Vital signs: Vital Signs Temp 98.2 F 11/09/18 12:27 Pulse 75 11/09/18 12:27 Resp 16 11/09/18 12:27 BP 124/83 11/09/18 12:27 Pulse Ox 97 11/09/18 12:27 Intake & Output 11/08/18 11/09/18 11/09/18 18:59 06:59 18:59 Intake Total 200 Balance 200 Weight 111.13 kg Intake: Oral 200 Other: Voiding Method Toilet Toilet Bedside Commode Bedside Commode # Voids 1 2 - Exam PHYSICAL EXAMINATION: Patient is lying in the bed comfortably, no acute distress, awake alert and oriented.. HEENT: Normocephalic. Neck is supple. Pupils reactive. Nostrils clear. Oral cavity is moist. Ears reveal no drainage. Neck reveals no JVD, carotid bruits, or thyromegaly. CHEST EXAMINATION: Trachea is central. Symmetrical expansion. Lung franco clear to auscultation and percussion. CARDIAC: Normal S1, S2 with no gallops. No murmurs ABDOMEN: Soft. Bowel sounds normal. No organomegaly. No abdominal bruits. Extremities: reveal no edema. No clubbing or cyanosis Neurologically awake, alert, oriented x3 with well-coordinated movements. No focal deficits noted Skin: No rash or skin lesions. Psychiatric: Coperative. Nonsuicidal Musculoskeletal: No joint swelling or deformity. Normal range of motion. - Labs CBC & Chem 7: 11/08/18 14:35 11/08/18 14:35 Assessment and Plan Assessment: Intractable lower back pain. Degenerative disc disease at L5-S1 Asthma stable GERD Nicotine addiction/ history of marijuana use DVT prophylaxis. Heparin subcu. Plan: Patient be continued on pain management with [place] and was given IV morphine in the ER. We will add muscle relaxants as needed. Continue with steroids. Continue with PPI. Continue with bedrest and orthopedic surgery is following. Further recommendations based on the clinical course. Continue with DVT prophylaxis. Time with Patient: Greater than 30
--- NOTE | 2018-11-29 12:26 | P.DS ---
Providers Date of admission: 11/08/18 16:07 Expected date of discharge: 11/10/18 Attending physician: Odessa Blankenship Consults: 11/08/18 15:39 Consult Physician Routine Consulting Provider: Santosh Michelle Consult Reason/Comments: back pain Do you want consulting provider notified?: Yes Primary care physician: [facility] Course: Discharge diagnosis Intractable lower back pain. Degenerative disc disease at L5-S1 Asthma stable GERD Nicotine addiction/ history of marijuana use DVT prophylaxis. Heparin subcu. Hospital course Patient is a 33-year-old female with known history of asthma, GERD and currently able to smoke came to the hospital with complaints of intractable back pain and pain over iliac crest. Patient says that she usually does not have any back pain. Yesterday she got up from the couch and suddenly felt pain in the lower back. She tried to move her back to the sites with just herself but could not get any pain relief. Since then pain is constant and unable to continue her daily activities. Patient presents ER for further evaluation. Denied any weakness of the lower extremities. No bladder or bowel incontinence. No sharp pain radiating down the leg. No fever no chills. No chest pain or shortness of breath. Denied any recent injury or fall. No previous history of back surgeries otherwise. Denied any history of CT and MRI of the spine previously. Patient says that she does have a history of periodic medical cyst over the sacral spine which was removed previously.. 11/09/2017 Patient says that her back pain is better but still having some soreness with ambulation. Able to get out of the bed without support. Patient was seen by orthopedic surgery and recommends IV steroids. No compressive fever or chills. No weakness. No neurological symptoms otherwise. No chest pain or shortness of breath. X-ray of the lumbar spine showed mildly generally changes at the L5-S1 11/10/2018 Patient did improve symptomatically and no complaints of back pain. Able to ambulate without support. Patient will be continued on steroid tapering course. No complaints of chest pain or shortness of breath. No leg weakness. Ming mmend to follow with orthopedic surgery as an outpatient. No other acute overnight issues. Patient is being discharged home today. PHYSICAL EXAMINATION: Patient is lying in the bed comfortably, no acute distress, awake alert and oriented.. HEENT: Normocephalic. Neck is supple. Pupils reactive. Nostrils clear. Oral cavity is moist. Ears reveal no drainage. Neck reveals no JVD, carotid bruits, or thyromegaly. CHEST EXAMINATION: Trachea is central. Symmetrical expansion. Lung franco clear to auscultation and percussion. CARDIAC: Normal S1, S2 with no gallops. No murmurs ABDOMEN: Soft. Bowel sounds normal. No organomegaly. No abdominal bruits. Extremities: reveal no edema. No clubbing or cyanosis Neurologically awake, alert, oriented x3 with well-coordinated movements. No focal deficits noted Skin: No rash or skin lesions. Psychiatric: Coperative. Nonsuicidal Musculoskeletal: No joint swelling or deformity. Normal range of motion. Discharge vitals reviewed. Patient Condition at Discharge: Fair Plan - Discharge Summary New Discharge Prescriptions: New Famotidine [Pepcid] 20 mg PO DAILY #12 tablet predniSONE 10 mg PO DAILY #24 tab Discharge Medication List Famotidine [Pepcid] 20 mg PO DAILY #12 tablet 11/10/18 [Rx] predniSONE 10 mg PO DAILY #24 tab 11/10/18 [Rx] Follow up Appointment(s)/Referral(s): Lourdes Duran MD [Primary Care Provider] - 11/16/18 10:00 am Discharge/Stand Alone Forms: Work/School Release Discharge Disposition: HOME SELF-CARE
== END 2018-11-10 13:37 | disposition home or self-care (01) ==
LOC: EC 13:12 → 4MS4W 16:07
PROVIDERS: ADMIT Internal Medicine; ATTEND Internal Medicine
DX: M51.37 Other intervertebral disc degeneration, lumbosacral region (principal); M43.07 Spondylolysis, lumbosacral region; M46.97 Unspecified inflammatory spondylopathy, lumbosacral region; J45.909 Unspecified asthma, uncomplicated; K21.9 Gastro-esophageal reflux disease without esophagitis; X50.9XXA Other and unspecified overexertion or strenuous movements or postures, initial encounter; I83.90 Asymptomatic varicose veins of unspecified lower extremity; Z90.49 Acquired absence of other specified parts of digestive tract; F17.210 Nicotine dependence, cigarettes, uncomplicated; Z91.040 Latex allergy status; Z82.49 Family history of ischemic heart disease and other diseases of the circulatory system; Z83.2 Family history of diseases of the blood and blood-forming organs and certain disorders involving the immune mechanism
CPT/HCPCS: 96376 ×3; 96375; 96372 ×2; 96374; 99285; 36415; 80048; 85025; 81003; 81025; 72100; G0378 ×3; J2270 ×2; J1644 ×2; J2930 ×2